=== PATIENT | male | born 1950 | race Caucasian/White ===

== ENCOUNTER 2017-09-27 11:39 | Emergency (ER) | payer OTHER ==
--- NOTE | 2017-09-27 12:57 | RAD REPORT ---
EXAM DESCRIPTION: RAD - Ribs Left - 09/27/2017 12:43 pm CLINICAL HISTORY: Left-sided rib pain. COMPARISON: None. FINDINGS: No displaced rib fracture is seen. No aggressive rib lesion.
--- NOTE | 2017-09-27 13:27 | ER ---
Nurse's Notes [facility] Name: Pedro Chaudhary Jr Age: 67 yrs Sex: Male : 1950 Arrival Date: 09/27/2017 Time: 11:43 Bed 9 Private MD: Diagnosis: Intercostal pain;Intercostal neuropathy Presentation: 09/27 11:50 Presenting complaint: Patient states: Initial injury was in Dec and urgent care stated dm5 that it was probably broke some ribs. Reinjured about a month later. Injured again about 2 1/2 weeks ago. Left sided rib pain. Transition of care: patient was not received from another setting of care. Onset of symptoms was August 2017. Initial Sepsis Screen: Does the patient meet any 2 criteria? No. Patient's initial sepsis screen is negative. Does the patient have a suspected source of infection? No. Patient's initial sepsis screen is negative. Care prior to arrival: None. 11:50 Method Of Arrival: Ambulatory 5 11:50 Acuity: NATALYA 4 dm5 Historical: - Allergies: 14:25 No Known Allergies; iw - Immunization history:: Adult Immunizations unknown. - Social history:: Smoking status: unknown. Screenin:24 Abuse screen: Denies threats or abuse. Denies injuries from another. Nutritional iw screening: No deficits noted. Tuberculosis screening: No symptoms or risk factors identified. Fall Risk None identified. Assessment: 14:22 General: Appears in no apparent distress. Behavior is calm, cooperative. Pain: iw Complains of pain in left lateral anterior chest and left lateral posterior chest. Neuro: Level of Consciousness is awake, alert, obeys commands, Oriented to person, place, time. Cardiovascular: Capillary refill < 3 seconds in bilateral fingers Patient's skin is warm and dry. Respiratory: Respiratory effort is even, unlabored, Respiratory pattern is regular, symmetrical. Derm: Skin is pink, warm \T\ dry. normal. Musculoskeletal: Range of motion: intact in all extremities. Vital Signs: 11:50 BP 159 / 86; Pulse 94; Resp 18; Temp 98.6; Pulse Ox 98% on R/A; Weight 86.18 kg; Height 5 5 ft. 11 in. (180.34 cm); 11:50 Body Mass Index 26.50 (86.18 kg, 180.34 cm) 5 ED Course: 11:43 Patient arrived in ED. mr 11:50 Arm band placed on right wrist. dm5 11:52 Triage completed. dm5 12:42 X-ray completed. Patient tolerated procedure well. Patient moved to radiology jb2 AMBULATORY. Patient moved back from radiology. 12:43 Ribs Left XRAY In Process Unspecified. EDMS 12:44 Ramone Vuong PA is PHCP. jr8 12:44 Goran Castellanos MD is Attending Physician. jr8 13:10 Toshia Dalton, RN is Primary Nurse. iw 14:24 No provider procedures requiring assistance completed. Patient did not have IV access iw during this emergency room visit. 14:25 Patient has correct armband on for positive identification. iw Administered Medications: No medications were administered Outcome: 13:26 Discharge ordered by . jr8 14:23 Discharged to home ambulatory. iw 14:23 Condition: good 14:23 Discharge instructions given to patient, Instructed on discharge instructions, follow up and referral plans. medication usage, Demonstrated understanding of instructions, follow-up care, medications, Prescriptions given X 2. 14:25 Patient left the ED. iw Signatures: Dispatcher [employer] EDPA Suze George, RN RN dm5 Mariana Stockton mr ArmstrongJohn jb2 Toshia Dalton, JOEL RN iw Ramone Vuong PA PA jr8
--- NOTE | 2017-09-27 13:27 | EDPHYS ---
Physician Documentation [facility] Name: Pedro Chaudhary Jr Age: 67 yrs Sex: Male : 1950 Arrival Date: 09/27/2017 Time: 11:43 Bed 9 Private MD: ED Physician Goran Castellanos HPI: 09/27 13:53 This 67 yrs old Male presents to ER via Ambulatory with complaints of Rib jr8 Pain. 13:53 The patient or guardian reports chest pain that is located primarily in the anterior jr8 chest wall. Onset: The symptoms/episode began/occurred acutely, yesterday. The pain does not radiate. Associated signs and symptoms: The patient has no apparent associated signs or symptoms. The chest pain is described as stabbing. Duration: The patient or guardian reports multiple episodes. Modifying factors: The symptoms are alleviated by nothing. the symptoms are aggravated by movement. Severity of pain: At its worst the pain was moderate in the emergency department the pain is unchanged. The patient has experienced similar episodes in the past, a few times. The patient has not recently seen a physician. Patient stated that he has had this pain before. 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 Will take antiinflammatory with improvement over time. Came today because he did it again and is tired of the pain . Historical: - Allergies: 14:25 No Known Allergies; iw - Immunization history:: Adult Immunizations unknown. - Social history:: Smoking status: unknown. ROS: 13:53 Eyes: Negative for injury, pain, redness, and discharge, ENT: Negative for injury, jr8 pain, and discharge, Neck: Negative for injury, pain, and swelling, Respiratory: Negative for shortness of breath, cough, wheezing, and pleuritic chest pain, Abdomen/GI: Negative for abdominal pain, nausea, vomiting, diarrhea, and constipation, Back: Negative for injury and pain, MS/Extremity: Negative for injury and deformity, Skin: Negative for injury, rash, and discoloration, Neuro: Negative for headache, weakness, numbness, tingling, and seizure. 13:53 Cardiovascular: Positive for chest pain, with movement, Negative for edema, orthopnea, palpitations, paroxysmal nocturnal dyspnea. Exam: 13:53 Cardiovascular: Regular rate and rhythm with a normal S1 and S2. No gallops, murmurs, jr8 or rubs. Normal PMI, no JVD. No pulse deficits. Respiratory: Lungs have equal breath sounds bilaterally, clear to auscultation and percussion. No rales, rhonchi or wheezes noted. No increased work of breathing, no retractions or nasal flaring. Abdomen/GI: Soft, non-tender, with normal bowel sounds. No distension or tympany. No guarding or rebound. No evidence of tenderness throughout. Back: No spinal tenderness. No costovertebral tenderness. Full range of motion. Skin: Warm, dry with normal turgor. Normal color with no rashes, no lesions, and no evidence of cellulitis. MS/ Extremity: Pulses equal, no cyanosis. Neurovascular intact. Full, normal range of motion. Neuro: Awake and alert, GCS 15, oriented to person, place, time, and situation. Cranial nerves II-XII grossly intact. Motor strength 5/5 in all extremities. Sensory grossly intact. Cerebellar exam normal. Normal gait. 13:53 Chest/axilla: Inspection: normal, Palpation: tenderness, that is mild, of the ribs under left breast , Axilla: are normal. Vital Signs: 11:50 BP 159 / 86; Pulse 94; Resp 18; Temp 98.6; Pulse Ox 98% on R/A; Weight 86.18 kg; Height dm5 5 ft. 11 in. (180.34 cm); 11:50 Body Mass Index 26.50 (86.18 kg, 180.34 cm) dm5 MDM: 12:44 Patient medically screened. jr8 13:25 Data reviewed: vital signs, nurses notes, radiologic studies, plain films, and as a jr8 result, I will discharge patient. Data interpreted: Pulse oximetry: on room air is 98 %. Interpretation: normal. Counseling: I had a detailed discussion with the patient and/or guardian regarding: the historical points, exam findings, and any diagnostic results supporting the discharge/admit diagnosis, radiology results, the need for outpatient follow up, a family practitioner, to return to the emergency department if symptoms worsen or persist or if there are any questions or concerns that arise at home. 13:55 Differential diagnosis: Chest Wall Injury Pneumothorax Rib Fracture. ED course: No jr8 obvious rib fracture. Intercostal strain more likely vs costochondritis . 09/27 11:54 Order name: Ribjavier Left XRAY; Complete Time: 13:05 dm5 Administered Medications: No medications were administered Disposition: 09/27/17 13:26 Discharged to Home. Impression: Intercostal pain, Intercostal neuropathy. - Condition is Stable. - Discharge Instructions: Chest Wall Pain. - Prescriptions for Cyclobenzaprine 10 mg Oral Tablet - take 1 tablet by ORAL route every 8 hours As needed; 30 tablet. Tramadol 50 mg Oral Tablet - take 1 tablet by ORAL route every 8 hours as needed; 20 tablet. - Medication Reconciliation Form, Thank You Letter, Antibiotic Education, Prescription Opioid Use form. - Follow up: Private Physician; When: 2 - 3 days; Reason: Recheck today's complaints, Continuance of care, Re-evaluation by your physician. - Problem is new. - Symptoms have improved. Addendum: 09/29/2017 06:41 Co-signature as Attending Physician, Goran Castellanos MD I agree with the assessment and w a plan of care. Signatures: Dispatcher [employer] EDToshia Izaguirre RN RN Ramone Mcmullen PA PA jr8 Goran Castellanos MD MD wa Corrections: (The following items were deleted from the chart) 09/27 14:25 13:26 09/27/2017 13:26 Discharged to Home. Impression: Intercostal pain; Intercostal iw neuropathy. Condition is Stable. Forms are Medication Reconciliation Form, Thank You Letter, Antibiotic Education, Prescription Opioid Use. Follow up: Private Physician; When: 2 - 3 days; Reason: Recheck today's complaints, Continuance of care, Re-evaluation by your physician. Problem is new. Symptoms have improved. jr8
== END 2017-09-27 14:25 | disposition home or self-care (01) ==
LOC: ER 11:39
DX: R07.82 Intercostal pain (principal); G58.0 Intercostal neuropathy
CPT/HCPCS: 99283